=== PATIENT | female | born 1950 | race Caucasian/White ===

== ENCOUNTER 2017-07-07 12:06 | Inpatient (IN) | payer MEDICARE, OTHER ==
[~2017-07-07] VITALS: Ht 170.2 cm; Wt 65.1 kg
[~2017-07-07 12:06] MED LIST: ASCO10004 PO; LYSI500T25 PO; MAGN400T7 PO; SUMA100T4 PO
[2017-07-07 13:03] VITALS: BP 160/93
[2017-07-07] MEDS ORDERED: LIDOCAINE 1%, 2ML ONE (13:15)
[2017-07-07] MEDS ORDERED: MIDAZOLAM 1 MG/ML, 2ML ONE (13:15)
[2017-07-07] MEDS ORDERED: FENTANYL PF 100 MCG/2ML ONE ×2 (13:16→18:05)
[2017-07-07] MEDS ORDERED: LACTATED RINGERS 1,000 ML IV SCH (14:44)
[2017-07-07] MEDS ORDERED: LIDOCAINE 1%, 2ML SQ PRN (15:00)
[2017-07-07] MEDS ORDERED: CEFAZOLIN 1,000 MG ONE (15:02)
[2017-07-07] MEDS ORDERED: DEXAMETHASONE 4 MG/ML, 1ML ONE (15:02)
[2017-07-07] MEDS ORDERED: ONDANSETRON 2MG/ML, 2ML ONE (15:02)
[2017-07-07] MEDS ORDERED: LABETALOL 5MG/ML, 20ML IV PRN (16:00)
[2017-07-07] MEDS ORDERED: hydrALAzine 20 MG/ML, 1ML IV PRN (16:00)
[2017-07-07] MEDS ORDERED: ROPIvacaine/PF 0.2%, 100ML 550 ML (check volume) INJ ONE (16:00)
[2017-07-07] MEDS ORDERED: PROMETHAZINE 12.5 MG SUPP PR PRN (16:00)
[2017-07-07] MEDS ORDERED: HYDROmorphone 2 MG/ML, 1ML IV PRN (16:00)
[2017-07-07] MEDS ORDERED: MEPERIDINE/PF 25MG/0.5ML IVPush PRN (16:00)
[2017-07-07] MEDS ORDERED: ACETAMINOPHEN 325 MG TABLET PO PRN (16:00)
[2017-07-07] MEDS ORDERED: LORazepam 2 MG/ML, 1ML IVPush PRN (16:00)
[2017-07-07] MEDS ORDERED: ALBUTEROL SULFATE 2.5 MG/3 ML NPPB PRN (16:00)
[2017-07-07] MEDS ORDERED: OXYcodone 5 MG/5 ML ORAL.SOL UDC PO PRN (16:00)
[2017-07-07] MEDS ORDERED: PROMETHAZINE 25 MG/ML, 1ML ONE (18:05)
[2017-07-07] MEDS: FENTANYL PF 100 MCG/2ML IV PRN ×2 (18:07→18:17)
[2017-07-07] MEDS ORDERED: OXYcodone 5 MG/5 ML ORAL.SOL UDC ONE (18:49)
[2017-07-07] MEDS ORDERED: ACETAMINOPHEN 325 MG TABLET ONE (18:49)
[2017-07-07] MEDS ORDERED: ACETAMINOPHEN 650 MG/20.3 ML UDC ONE (18:49)
[2017-07-07] MEDS ORDERED: HYDROmorphone 2 MG/ML, 1ML ONE (18:49)
[2017-07-07] MEDS: SODIUM CHLORIDE FLUSH 10ML SYR IVF SCH (21:00)
[2017-07-08 03:13] VITALS: BP 118/70
[2017-07-08 06:41] VITALS: BP 133/77
[2017-07-08] MEDS ORDERED: HYDROmorphone 1 MG/ML, 1ML IV PRN (09:00)
[2017-07-08] MEDS ORDERED: ONDANSETRON 2MG/ML, 2ML IV PRN (09:00)
[2017-07-08] MEDS ORDERED: OXYcodone/APAP 5/325MG TABLET PO PRN (09:00)
[2017-07-08] MEDS: SODIUM CHLORIDE FLUSH 10ML SYR IVF SCH (09:13)
[2017-07-08] MEDS ORDERED: SENNA/DOCUSATE TABLET PO PRN (10:00)
[2017-07-08] MEDS ORDERED: CEFAZOLIN PMX 2GM/100ML 100 ML IVPB SCH (10:00)
[2017-07-08 12:25] VITALS: BP 109/64
[2017-07-08] MEDS ORDERED: DOCUSATE 100 MG CAPSULE PO SCH (21:00)
[2017-07-08] MEDS ORDERED: SODIUM CHLORIDE FLUSH 10ML SYR IVF SCH (21:00)
== END 2017-07-08 14:25 | disposition home or self-care (01) | DRG 469 ==
LOC: ORIP 12:06 → 4NOR 19:46
PROVIDERS: ADMIT Orthopaedic Surgery; ATTEND Orthopaedic Surgery
PROC: 0QSH04Z Reposition Left Tibia with Internal Fixation Device, Open Approach (ICD-10-PCS; 2017-07-07)
PROC: 0L8P0ZZ Division of Left Lower Leg Tendon, Open Approach (ICD-10-PCS; 2017-07-07)
PROC: 0SRG0JZ Replacement of Left Ankle Joint with Synthetic Substitute, Open Approach (ICD-10-PCS; principal; 2017-07-07 14:30)
DX: M19.072 Primary osteoarthritis, left ankle and foot (principal); M24.572 Contracture, left ankle; S82.52XA Displaced fracture of medial malleolus of left tibia, initial encounter for closed fracture; X58.XXXA Exposure to other specified factors, initial encounter; Y93.89 Activity, other specified; Y99.8 Other external cause status
CPT/HCPCS: 76001; 93005; C1713; J0690; J1100; J1170; J2250; J2405; J2795; J3010; J3490; C1776; J7120